=== PATIENT | female | born 1945 | race Caucasian/White ===

== ENCOUNTER 2016-11-08 09:46 | Day surgery (SDC) | payer MEDICARE, OTHER ==
[~2016-11-08 09:46] MED LIST: RINGER'S SOLUTION,LACTATED 1,000 ML IV PRN
[2016-11-08] MEDS ORDERED: RINGER'S SOLUTION,LACTATED 1,000 ML IV ONE (10:15)
[2016-11-08 12:16] VITALS: BP 130/65
--- NOTE | 2016-11-09 12:28 | OR ---
Operative Report - Dictated Report Narrative: OPERATIVE REPORT DATE OF OPERATION: 11/08/2016 PREOPERATIVE DIAGNOSIS: History of colon polyp POSTOPERATIVE DIAGNOSIS: 4 mm polyp near the hepatic flexure (pathology pending) OPERATION: Colonoscopy with hot biopsy forceps polypectomy at the hepatic flexure SURGEON: Letty Siddiqui MD ANESTHESIA: KINGSLEY Olvera CRNA INDICATIONS FOR PROCEDURE: The patient is a 71-year-old female referred by Dr. Isaac. 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 She has some long-standing crampy abdominal pain relieved by stooling. There is no family history of colon cancer FINDINGS: 4 mm area of polypoid change near the hepatic flexure otherwise normal colonoscopy to the cecum NARRATIVE OF PROCEDURE: The patient was identified in the holding area, and prior to the administration of anesthetic, a multidisciplinary timeout was observed. With the patient in the left lateral position and after the administration of intravenous sedation, the perineum was inspected. There was no evidence of pilonidal disease or skin breakdown. The external appearance of the anus was normal. Sphincter tone was good. The flexible fiberoptic colonoscope was inserted into the rectum which was insufflated with air. The rectal mucosa and submucosal vascular pattern appeared normal, the prep was seen to be complete. The scope was advanced through the sigmoid colon, up the descending colon, and around the splenic flexure where the triangular haustral architecture of the transverse colon was seen. The scope was advanced across the transverse colon, to the hepatic flexure. At this level a 4 mm area of polypoid change was identified. This was biopsied and then thoroughly destroyed with electrocautery. The site was seen to be complete and hemostatic. The scope was advanced around the hepatic flexure to the cecum, where the confluence of tenia and the ileocecal valve were identified. The mucosa at this level appeared normal. The scope was then slowly withdrawn in a circular fashion so that all aspects of colonic mucosa were inspected. The colon was somewhat capacious and character however relatively normal in course. The haustral architecture appeared well preserved throughout with no evidence of external compression. The mucosa and submucosal vascular pattern appeared normal, specifically there was no gross evidence to suggest colitis or inflammatory bowel disease and no AV malformations were seen. No pb diverticular openings were demonstrated. The scope was gradually withdrawn to the level of the rectum. As much insufflated air as possible was removed. The scope was withdrawn from the patient and the procedure terminated. The patient tolerated the anesthetic and procedure well without complication and was transferred back to the ambulatory surgery area awake and in stable condition. The patient remained stable throughout a period of postoperative observation. She denied abdominal discomfort, was able to tolerate by mouth intake, and was up without assistance. I shared the operative findings with the patient and she was given copies of the photographs which appear in the medical record. She was discharged home with instructions not to engage in hazardous activity today , but may resume normal activity tomorrow, and advance diet as tolerated. She is to continue those medications as listed in the history and physical exam. I made arrangements to contact her with the biopsy reports and will make additional recommendations for treatment and follow-up based upon those results. Reviewed and electronically signed
== END 2016-11-08 09:47 | disposition home or self-care (01) ==
LOC: AMB 09:46
PROVIDERS: ATTEND Surgery
PROC: 0DBE8ZX Excision of Large Intestine, Via Natural or Artificial Opening Endoscopic, Diagnostic (ICD-10-PCS; principal; 2016-11-08 10:15)
DX: Z12.11 Encounter for screening for malignant neoplasm of colon (principal); K63.5 Polyp of colon; E11.9 Type 2 diabetes mellitus without complications; I10 Essential (primary) hypertension; I25.10 Atherosclerotic heart disease of native coronary artery without angina pectoris; J44.9 Chronic obstructive pulmonary disease, unspecified; M81.0 Age-related osteoporosis without current pathological fracture; E66.9 Obesity, unspecified; Z68.41 Body mass index [BMI] 40.0-44.9, adult; Z86.010 Personal history of colon polyps; Z87.891 Personal history of nicotine dependence

== ENCOUNTER 2016-12-13 07:44 | Inpatient (IN) | payer MEDICARE, OTHER ==
[~2016-12-13 07:44] MED LIST changes: +MORPHINE SULFATE 15 MG TABLET.SA PO PRN; +ROPIVACAINE HCL/PF 100 MG, KETOROLAC TROMETHAMINE 30 MG, EPINEPHrine 0.2 MG in NORMAL S... IJ PRN; +TRANEXAMIC ACID 1,000 MG in NORMAL SALINE 100 ML IV PRN; +ceFAZolin SODIUM 1 GM VIAL IV PRN
--- NOTE | 2016-12-13 09:43 | PREOP NOTE ---
Preoperative Progress Note - Preoperative Changes Changes to Preop Condition?: No Changes
[2016-12-13] MEDS ORDERED: RINGER'S SOLUTION,LACTATED 800 ML IV ONE (10:15)
[2016-12-13] MEDS ORDERED: RINGER'S SOLUTION,LACTATED 1,000 ML IV ONE ×2 (11:05→12:20)
[2016-12-13] MEDS ORDERED: diphenhydrAMINE HCL 50 MG/ML VIAL IV PRN (12:08)
[2016-12-13] MEDS ORDERED: ACETAMINOPHEN 500 MG TABLET PO PRN (12:08)
[2016-12-13] MEDS ORDERED: ZOLPIDEM TARTRATE 5 MG TABLET PO PRN (12:08)
[2016-12-13] MEDS ORDERED: PROMETHAZINE HCL 5 MG in DEXTROSE 5 % IN WATER 50 ML IV PRN ×2 (12:08)
[2016-12-13] MEDS ORDERED: MAGNESIUM HYDROXIDE 30 ML UDC PO PRN (12:08)
[2016-12-13] MEDS ORDERED: MAG HYDROX/ALUMINUM HYD/SIMETH 30 ML UDC PO PRN (12:08)
[2016-12-13] MEDS ORDERED: NITROGLYCERIN 0.4 MG/TAB BTL SL PRN (12:10)
--- NOTE | 2016-12-13 12:18 | OR ---
Operative Report - Dictated Report Narrative: Date: 12/13/2016 Preoperative diagnosis: Left Knee degenerative joint disease. Postoperative diagnosis: Left Knee degenerative joint disease. Procedure: Left Total knee arthroplasty. Surgeon: Rick Frances M.D. Supervisor Detasseling Crew: Alok Mullen PA-C Anesthesia: Spinal with regional block and local periarticular joint injection. Complications: None Specimens: Bone for disposal. Estimated blood loss: Minimal. Tourniquet time: 73 Minutes at 350 millimeters of mercury. Retained implants: Depuy Attune size 5 narrow left lugged cemented posterior stabilized femoral component. Size 4 fixed-bearing cemented tibial platform. 5 by 8 millimeter posterior stabilized cross-linked tibial insert. 32 millimeter medialized patella button. Indications: Mrs. Bustamante is a 71-year-old female who has had long-standing left knee pain and arthrosis. This patient was followed in my clinic for period of time with significant complaints of left knee pain consistent with arthritic changes. She had failed conservative measures including, but not limited to, activity modification, passage of time, medications, and other conservative measures. Patient wished to proceed with surgical treatment. The risks, benefits, and alternatives were discussed in clinic. The risks of , blood clots, bleeding, infection, nerve/tendon blood vessel/ injury, malposition of components, intraoperative fracture, postoperative limited range of motion, persistent pain, failure of components, and need for additional procedures. Patient wished to proceed consent was obtained after answering all questions. Procedure: After marking the correct extremity on the floor, the patient was taken to the operating room. A timeout was performed. IV antibiotics consisting of Ancef were administered prior to the procedure. A regional followed by spinal anesthetic was induced by anesthesia, per my request, on the operative table with all bony prominences well-padded. Lei catheter was placed, and a bump was placed under the operative side buttock. SCDs and JULIETA hose were utilized on the nonoperative leg. A well-padded tourniquet was applied to the operative thigh. The operative leg was then pre-scrubbed with alcohol prepped, and draped in a standard sterile fashion. After exsanguinating the extremity with an Esmarch bandage, the tourniquet was inflated. After marking out the anterior knee for standard incision centered over the patella, the skin was incised and dissected down to the joint retinaculum. The joint retinaculum was marked out as well as the horizontal axis of the patella, and a standard medial parapatellar arthrotomy was then made. The most proximal aspect of the quadriceps tendon and the patella tendon insertion were protected from release. A partial synovectomy was performed as well as a resection of the infrapatellar fat pad. The distal femoral fat pad proximal to the trochlea was also resected using cautery. The soft tissues were elevated off the medial aspect of the proximal tibia using a Chun elevator ensuring that we did not transect the medial collateral ligament. Upon initial evaluation range of motion was approximately 0 degrees to 120 degrees of flexion. There were signs of advanced arthrosis in the medial and patellofemoral joint spaces. There were large marginal osteophytes which were removed with a rongeur. The knee was hyperflexed and the patella was tucked laterally. Protecting the surrounding soft tissues with Homans, an entry drill was placed down the femoral canal using Whitesides line for guidance into the entry point. The intramedullary femoral alignment angélica was utilized in order to cut the distal femur in 5 degrees of valgus resecting 10 millimeters of bone. Next the distal femur was sized to a size 5. A posterior referencing guide was utilized to place the distal femoral cutting block in 3 degrees of external rotation. This was pinned into place. The rotation was confirmed both visually and based on anatomic landmarks. The 4 in 1 cutting jig of the appropriate size was utilized in order to make all bony cuts. The angle wing was used to ensure no notching. Retractors were utilized in order to protect surrounding soft tissues. This cut did not result in any excessive notching. We then cut the box centered over the distal femur. This allowed for resection of the anterior and posterior cruciate ligaments. I then turned my attention to the preparation of the tibia. Using an extra medullary tibial alignment angélica, 3 millimeters of bone was resected off the medial articular surface. This was made perpendicular to the mechanical axis of the joint with the alignment angélica centered over the ankle mortise. The alignment angélica was checked and was noted to be parallel to the mechanical axis, centered over the medial one third of the tibial tubercle, paralleling the anterior surface of the tibia. We then turned our attention to the remaining meniscus and soft tissues. These were removed while protecting the surrounding ligaments and soft tissues. The marginal osteophytes off the anterior, posterior, medial, lateral aspects of the femur and tibia were removed. The tibia was sized out to a size 4. Next the tibia was drilled and punched in an externally rotated position. Next the trial femur and a series of tibial inserts were utilized in order to allow for full extension and maximal flexion. It was found that a 8 millimeter insert gave the best range of motion and stability at multiple flexion points as well as at full extension there was less than 2 mm of gapping both medially and laterally. There is minimal anterior translation with the knee at 90 degrees of flexion and no signs of being able to dislocate the knee. The patella was then prepared. The initial thickness was 21 millimeters. This was reamed down to 12 millimeters parallel to the anterior surface of the patella. It was sized out to a size 32 medialized patella button. This was then drilled and trialed. Without any medial restraint the patella tracked appropriately and did not sublux or dislocate. At this point, it was felt these were the appropriate sized implants, and all trials were removed. The standard periarticular joint injection consisting of ropivacaine, Toradol, and epinephrine were injected into the periarticular joint tissues. The bony surfaces were thoroughly irrigated with a pulsatile- suction saline irrigation device. A bone plug from the prior resected anterior chamfer cut was placed into the drill hole at the distal femur. The bony surfaces were then dried in preparation for placement of the implants. The cement was vacuum mixed per the german teacher's instructions. The cement was placed on the dry bony surfaces and posterior aspect of the implants. The implants were impacted into place, removing all extruded cement. At this point anesthesia administered tranexamic acid per protocol intravenously. The knee was placed in extension with axial loading with the trial insert while the cement cured. Once the cement cured, all remaining extruded cement was removed. The knee was placed through a range of motion with the trial insert to ensure appropriate range of motion and stability. Final range of motion was approximately 0 to 120 degrees. The knee was again thoroughly irrigated with pulsatile saline lavage. The final polyethylene insert was then impacted into place ensuring no retained soft tissues. The remaining periarticular joint injection was injected. A medium Hemovac drain was placed exiting superior laterally. The knee was then placed over a triangle and the arthrotomy was closed with interrupted #1 Vicryl after thoroughly irrigating the joint. The deep and subcutaneous tissues were closed with interrupted 0 and 3-0 Vicryl respectively. Skin was closed with a running subcutaneous 3-0 Monocryl and Prineo Dermabond dressing. 4 x 4's, Sof-Rol, and a full leg Natanael wrap were applied. All sponge, needle, blade, and instrument counts were correct prior to closing the wounds. Postoperative condition: The patient was awoken and transferred to the postanesthesia care unit in stable condition. Plan is to be admitted to the inpatient medical/surgical floor postoperatively for 24 hours of IV antibiotics , physical therapy, occupational therapy, and medical comanagement. Patient will be weightbearing as tolerated with range of motion as tolerated. DVT prophylaxis will be with SCDs, JULIETA hose, and pharmacological anticoagulation. Anticipated hospital stay is approximately 2-4 days.
--- NOTE | 2016-12-13 12:25 | OR ---
Anesthesia Procedure Note - Anesthesia Procedure Note Date of Service: 12/13/16 Narrative: Vital Signs - Last Taken Temp 36.5 C 12/13/16 10:07 Pulse 91 12/13/16 10:07 Resp 18 12/13/16 10:07 BP 145/75 12/13/16 10:07 Pulse Ox 95 12/13/16 10:07 O2 Oxygen Delivery Method Room Air 12/13/16 12:23 ANESTHESIA PROCEDURE NOTE Date of Procedure: 12/13/2016. Time of procedure: 1015. Performed by: Mirza Olvera CRNA Building Equipment Operator: None. Preprocedure diagnosis: Left total knee arthroplasty. Post procedure diagnosis: Same. Procedure: Left ultrasound guided femoral block for postoperative analgesia. Indications: The patient is a 71 -year-old female status post left total knee arthroplasty and consultation for left ultrasound-guided femoral nerve block. Findings: See below. Details of the procedure: The tissue over the intended target site was cleansed with ChloraPrep. 1 ml Lidocaine 1 % was infiltrated to the skin and subcutaneous tissue. Under sterile technique and ultrasound guidance a 21-gauge block needle was inserted anterior to the left femoral nerve . 30 mL's of 0.5% bupivacaine plus epinephrine 1 200,000 was injected after negative aspiration for blood. Spread of local anesthetic surrounding the femoral nerve was observed throughout the injection with ultrasound. The needle was removed intact. No complications were noted. The images were retained in the Hospital medical database . EBL: Minimal. Fluids: N/A. Specimen: N/A. Post procedure condition: The patient tolerated the procedure well. No complications were noted. Thank you for this consultation. Mirza Olvera CRNA
[2016-12-13] MEDS ORDERED: ALBUTEROL SULFATE 2.5 MG/0.5 ML VIAL.NEB IH PRN (12:30)
[2016-12-13] MEDS: DICLOFENAC SODIUM 100 APPL TUBE TP SCH ×2 (14:10→16:21)
[2016-12-13] MEDS: KETOROLAC TROMETHAMINE 15 MG/ML VIAL IV SCH ×2 (14:11→19:02)
[2016-12-13] MEDS: ceFAZolin SODIUM 1 GM in DEXTROSE 5 % IN WATER 100 ML IV SCH ×4 (14:14→20:12)
[2016-12-13] MEDS: RINGER'S SOLUTION,LACTATED 1,000 ML IV PRN ×2 (14:20→21:30)
[2016-12-13] MEDS ORDERED: DICLOFENAC SODIUM 100 APPL TUBE TP PRN (16:23)
--- NOTE | 2016-12-13 16:25 | PN ---
Subjective - Date and Time Seen Date: 12/13/16 Time: 16:25 Subjective Narrative: doing well. no significant pain. laying in bed, using CPM. no cp, no dyspnea. no n/v. Objective Objective Narrative: history of cardiac stent to LAD in 06/2013. last echo - 03/2015 ef 60-65% mild LVH diastolic dysfunction - Review of Systems Generalized/Overall Review: Reports: No Symptoms Reported EENTM: Reports: No Symptoms Reported Respiratory: Reports: No Symptoms Reported Cardiac: Reports: No Symptoms Reported Abdominal: Reports: No Symptoms Reported Genitourinary Symptoms: Reports: No Symptoms Reported Musculoskeletal Complaints: Reports: Joint Pain, Joint Swelling Neurological: Reports: No Symptoms Reported Skin: Reports: No Symptoms Reported Endocrine: Reports: No Symptoms Reported Misc: All systems neg except as marked - Vitals Vitals: Last Vital Signs Temp 36.8 C 12/13/16 13:48 Pulse 87 12/13/16 13:48 Resp 16 12/13/16 13:48 BP 126/71 12/13/16 13:48 Pulse Ox 93 12/13/16 13:48 - Exam Constitutional: Present: Alert, Cooperative, No distress, Elderly Neck: Present: supple Breasts: Present: Exam deferred Respiratory: Present: lungs clear, normal breath sounds Cardiovascular/Chest: Present: normal peripheral pulses, regular rate, rhythm Abdomen: Present: soft, nontender, nondistended /Rectal: Present: Exam deferred Extremity: Present: normal inspection - right, no calf tenderness, leg pain - left Skin Exam: Present: normal color, warm/dry, no cyanosis Cauti Physician Documentation - Urinary Catheter Management 2-way Urethral Urethral Indwelling: Yes Reason for Continuing Indwelling Catheter: Surgical Procedure Date of Insertion: 12/13/16 Time of Insertion: 10:45 Assessment/Plan Plan Narrative: 71 year old female s/p left TKA. care per orthopaedics team - appreciate their help. Given CAD history with stent - monitor on tele for 24-48 hours. If no events, will d/c telemetry. Continue aspirin when okay with ortho. anticoagulation / VTE per ortho. patient has a history of diastolic dysfunction - watch I&Os closely as she will tend to fluid overload quickly. daily weight / strict I&Os. will follow closely. - Problems/Diagnosis (1) Status post total left knee replacement Problem: Acute (2) CAD (coronary artery disease) Problem: Acute (3) COPD (chronic obstructive pulmonary disease) Problem: Acute (4) Diabetes Problem: Acute (5) HTN (hypertension) Problem: Acute (6) Obesity Problem: Acute (7) Osteoarthritis Problem: Acute (8) Diastolic dysfunction Problem: Acute
[2016-12-13] MEDS ORDERED: rOPINIRole HCL 1 MG TABLET ONE (19:01)
[2016-12-13] MEDS: FLUTICASONE/SALMETEROL 14 PUFF DISK.W.DEV IH SCH (20:13)
[2016-12-13] MEDS: SENNOSIDES/DOCUSATE SODIUM 1 TAB TABLET PO SCH (20:15)
[2016-12-13] MEDS: MORPHINE SULFATE 15 MG TABLET.SA PO SCH (20:16)
[2016-12-13] MEDS: SIMVASTATIN 10 MG TABLET PO SCH (20:16)
[2016-12-13] MEDS: amLODIPine BESYLATE 5 MG TABLET PO SCH (20:17)
[2016-12-13] MEDS ORDERED: rOPINIRole HCL 0.5 MG TABLET PO PRN (21:00)
[2016-12-14] MEDS: KETOROLAC TROMETHAMINE 15 MG/ML VIAL IV SCH ×5 (00:23→23:18)
[2016-12-14] MEDS: oxyCODONE HCL/ACETAMINOPHEN 1 TAB TABLET PO PRN ×2 (00:27→04:31)
[2016-12-14] MEDS: ceFAZolin SODIUM 1 GM in DEXTROSE 5 % IN WATER 100 ML IV SCH ×2 (02:37)
[2016-12-14] MEDS: ONDANSETRON HCL/PF 2 MG/ML VIAL IV PRN ×2 (05:21→14:17)
[2016-12-14 06:14] LABS: Hematocrit 34.2 % (37.0-47.0); Hemoglobin 11.2 gm/dL (12.5-16.0); Mean Cell Volume 87.5 fl (78-100); Mean Corpuscular Hemoglobin 28.6 pg (27-31); Mean Corpuscular Hgb Conc 32.7 g/dl (32-36); Mean Platelet Volume 11.3 fl (6.0-9.5); Platelet Count 244 K/mm3 (150-450); Red Blood Count 3.91 M/mm3 (4.2-5.4); Red Cell Distribution Width 13.8 % (11.5-14.0); White Blood Count 7.3 K/mm3 (4.0-10.5)
[2016-12-14 06:25] LABS: Anion Gap 12.2 mmol/L (6.8-13.8); BUN/Creatinine Ratio 22.1 (9.0-21.6); Calcium * 8.1 mg/dL (7.9-10.9); Carbon Dioxide 28.8 mmol/L (24-32.6); Estimated Creat Clear 47.6
[2016-12-14] MEDS ORDERED: ONDANSETRON HCL/PF 2 MG/ML VIAL IV PRN (06:39)
[2016-12-14] MEDS ORDERED: ONDANSETRON HCL/PF 2 MG/ML VIAL IV ONE (06:47)
--- NOTE | 2016-12-14 08:00 | PN ---
Subjective - Date and Time Seen Date: 12/14/16 Time: 07:55 Subjective Narrative: Subjective: Reports notable nausea last night. She does not feel it's significantly related to her pain meds but cannot completely recall she was nauseated with just about any food or liquids last night. She states her pain is doing okay at this time but cannot recall she's been able to keep down me if her pain medicines. Voiding without any complications. Denies calf pain. Physical exam: Alert and oriented to person, place and time Abdomen soft Left lower Extremity: Palpable dorsalis pedis pulse. Sensation grossly intact to light touch. Dressings clean and dry. Able to flex and extend ankle and toes. No excessive drainage. Calf and thigh are soft and nontender. Assessment: Postop day 1 status post left total knee arthroplasty. Plan: Continue with physical and occupational therapy weightbearing as tolerated. Continue with anticoagulation. 24 hours postoperative prophylactic antibiotics. Pain control with goal to rely on oral medications- we will hold her MS Contin and switch her Percocet to [place] in an attempt to decrease her nausea. Continue bowel regimen. Will need 6 weeks with walker or assitive device to protect joint while ambulating during the recovery process. Discharge planning - she is planning on going to a nursing facility and thus will need 3 midnight prior to transfer. Goal is to transfer on . Discontinue drain and Lei catheter. Repeat labs in a.m. Objective - Vitals Vitals: Last Vital Signs Temp 36.8 C 12/14/16 07:40 Pulse 94 12/14/16 07:40 Resp 20 12/14/16 07:40 BP 154/50 12/14/16 07:40 Pulse Ox 92 12/14/16 07:40 - Abnormal Lab Findings Abnormal Lab Findings: Abnormal Lab Results 12/14/16 12/14/16 Range/Units 05:15 05:15 RBC 3.91 L (4.2-5.4) M/mm3 Hgb 11.2 L (12.5-16.0) gm/dL Hct 34.2 L (37.0-47.0) % MPV 11.3 H (6.0-9.5) fl BUN/Creatinine Ratio 22.1 H (9.0-21.6) Random Glucose 162 H (70-110) mg/dL Cauti Physician Documentation - Urinary Catheter Management 2-way Urethral Urethral Indwelling: Yes Date of Insertion: 12/13/16 Time of Insertion: 10:45 Assessment/Plan - Problems/Diagnosis (1) Acute blood loss anemia Problem: Acute (2) Nausea & vomiting Problem: Acute (3) CAD (coronary artery disease) Problem: Chronic (4) COPD (chronic obstructive pulmonary disease) Problem: Chronic (5) Diabetes Problem: Chronic Qualifiers: Diabetes mellitus type: type 2 (6) Diastolic dysfunction Problem: Chronic (7) HTN (hypertension) Problem: Chronic (8) Obesity Problem: Chronic Qualifiers: Obesity type: due to excess calories Obesity classification: adult class 2 (BMI 35 ? 39.9) Body mass index: BMI 39.0-39.9 (9) Status post total left knee replacement Problem: Acute
[2016-12-14] MEDS: HYDROcodone/ACETAMINOPHEN 1 EACH TABLET PO PRN ×4 (08:54→23:06)
[2016-12-14] MEDS: MULTIVITAMINS 1 CAP CAPSULE PO SCH (08:55)
[2016-12-14] MEDS: FLUTICASONE/SALMETEROL 14 PUFF DISK.W.DEV IH SCH ×2 (08:55→21:04)
[2016-12-14] MEDS: CHOLECALCIFEROL 5,000 UNIT TABLET PO SCH (08:55)
[2016-12-14] MEDS: CALCIUM CARBONATE 500 MG TAB.CHEW PO SCH (08:56)
[2016-12-14] MEDS ORDERED: amLODIPine BESYLATE 5 MG TABLET PO SCH (09:00)
[2016-12-14] MEDS: LOSARTAN POTASSIUM 50 MG TABLET PO SCH (09:28)
[2016-12-14] MEDS: HYDROmorphone HCL 1 MG/ML DISP.SYRIN IV PRN ×2 (10:06→13:07)
[2016-12-14] MEDS: ENOXAPARIN SODIUM 40 MG/0.4 ML SYRG SC SCH (10:25)
--- NOTE | 2016-12-14 13:56 | PN ---
Subjective - Date and Time Seen Date: 12/14/16 Time: 13:41 Subjective Narrative: had nausea / vomiting in the night . MS contin and percocet d/[place], on hydrocodone with improvement in s/s. pain under control. Objective - Review of Systems Respiratory: Denies: Cough, Shortness of Breath, Orthopnea Cardiac: Denies: Chest Pain, Edema, Palpitations Abdominal: Reports: Nausea, Vomiting - Vitals Vitals: Vital Signs Temp 36.8 C 12/14/16 07:40 Pulse 97 12/14/16 10:56 Resp 20 12/14/16 07:40 BP 102/54 12/14/16 10:38 Pulse Ox 92 12/14/16 07:40 - Abnormal Lab Findings Abnormal Lab Findings: Laboratory Tests 12/14/16 05:15 WBC 7.3 Hgb 11.2 L Hct 34.2 L Plt Count 244 12/14/16 05:15 Plasma Sodium 141 Potassium 4.0 Chloride 103 Carbon Dioxide 28.8 Anion Gap 12.2 BUN 15 Creatinine 0.68 Est GFR (Non-Af Amer) 90 Random Glucose 162 H Calcium 8.1 - Exam Constitutional: Present: Elderly - severely obese, alert and oriented x 3. Neck: Present: normal inspection, trachea midline Respiratory: Present: normal breath sounds, no respiratory distress. Absent: no accessory muscle use Cardiovascular/Chest: Present: regular rate, rhythm Abdomen: Present: Normal bowel sounds, soft, nontender, obese Extremity: Present: other - able to move all toes; sensation intact. Eye contact: Present: cooperative, good eye contact, normal speech Cauti Physician Documentation - Urinary Catheter Management 2-way Urethral Urethral Indwelling: No Date of Insertion: 12/13/16 Time of Insertion: 10:45 Date of Removal: 12/14/16 Time of Removal: 10:00 Assessment/Plan Plan Narrative: 1. LT. total knee arthroplasty: POD #1. MS Contin and Percocet DC'd due to nausea/vomiting. Patient currently on Vicodin for pain. 2. Acute blood loss anemia: Due to surgery. Hemodynamically stable. 3. Hypertension: Losartan on hold today due to low blood pressure. 4. Nausea and vomiting: on phenergan IV 5. chronic medical conditions: Osteoporosis, RLS, COPD, reviewed and stable.
[2016-12-14] MEDS: amLODIPine BESYLATE 5 MG TABLET PO SCH (21:05)
[2016-12-14] MEDS: SENNOSIDES/DOCUSATE SODIUM 1 TAB TABLET PO SCH (21:05)
[2016-12-14] MEDS: SIMVASTATIN 10 MG TABLET PO SCH (21:06)
[2016-12-15] MEDS: HYDROcodone/ACETAMINOPHEN 1 EACH TABLET PO PRN ×8 (02:42→23:14)
[2016-12-15] MEDS: KETOROLAC TROMETHAMINE 15 MG/ML VIAL IV SCH (05:19)
[2016-12-15 06:10] LABS: Hematocrit 28.8 % (37.0-47.0); Hemoglobin 9.4 gm/dL (12.5-16.0); Mean Cell Volume 87.8 fl (78-100); Mean Corpuscular Hemoglobin 28.7 pg (27-31); Mean Corpuscular Hgb Conc 32.6 g/dl (32-36); Mean Platelet Volume 10.8 fl (6.0-9.5); Platelet Count 201 K/mm3 (150-450); Red Blood Count 3.28 M/mm3 (4.2-5.4); Red Cell Distribution Width 13.9 % (11.5-14.0); White Blood Count 19.4 K/mm3 (4.0-10.5)
[2016-12-15 06:25] LABS: Anion Gap 14.6 mmol/L (6.8-13.8); BUN/Creatinine Ratio 22.2 (9.0-21.6); Calcium * 7.6 mg/dL (7.9-10.9); Estimated Creat Clear 39.9; Potassium 3.6 mmol/L (3.4-4.6)
[2016-12-15] MEDS: FLUTICASONE/SALMETEROL 14 PUFF DISK.W.DEV IH SCH ×2 (08:06→20:58)
[2016-12-15] MEDS: CHOLECALCIFEROL 5,000 UNIT TABLET PO SCH (08:07)
[2016-12-15] MEDS: MULTIVITAMINS 1 CAP CAPSULE PO SCH (08:07)
[2016-12-15] MEDS: LOSARTAN POTASSIUM 50 MG TABLET PO SCH (08:08)
[2016-12-15] MEDS: CALCIUM CARBONATE 500 MG TAB.CHEW PO SCH (08:09)
[2016-12-15] MEDS: MORPHINE SULFATE 15 MG TABLET.SA PO SCH ×2 (08:10→20:54)
--- NOTE | 2016-12-15 09:19 | PN ---
Subjective - Date and Time Seen Date: 12/15/16 Time: : Subjective Narrative: Subjective: Reports resolved nausea after changing pain medicines. Her pain is improved. Denies any pain with urination, fever or chills, or cough. Voiding without any complications. Denies calf pain. Was able to walk in the [place] with therapy today Physical exam: Alert and oriented to person, place and time Left lower Extremity: Palpable dorsalis pedis pulse. Sensation grossly intact to light touch. Dressings clean and dry. Able to flex and extend ankle and toes. No excessive drainage. Calf and thigh are soft and nontender. Assessment: Postop day 2 status post left total knee arthroplasty. Plan: Continue with physical and occupational therapy weightbearing as tolerated. Continue with anticoagulation. Pain control with goal to rely on oral medications- we will hold her MS Contin and switch her Percocet to [place] in an attempt to decrease her nausea. Continue bowel regimen. Will need 6 weeks with walker or assitive device to protect joint while ambulating during the recovery process. Discharge planning - she is planning on going to a nursing facility on . She has an elevated white count today but no apparent signs of infection. We will repeat hemogram in the morning and continue to monitor. This is likely reactive postoperative. Repeat labs in a.m. Objective - Vitals Vitals: Last Vital Signs Temp 36.6 C 12/15/16 07:34 Pulse 92 12/15/16 08:08 Resp 18 12/15/16 07:34 BP 132/50 12/15/16 08:08 Pulse Ox 94 12/15/16 07:34 - Abnormal Lab Findings Abnormal Lab Findings: Abnormal Lab Results 12/15/16 12/15/16 Range/Units 06:00 06:00 WBC 19.4 H D (4.0-10.5) K/mm3 RBC 3.28 L (4.2-5.4) M/mm3 Hgb 9.4 L (12.5-16.0) gm/dL Hct 28.8 L (37.0-47.0) % MPV 10.8 H (6.0-9.5) fl Anion Gap 14.6 H (6.8-13.8) mmol/L BUN/Creatinine Ratio 22.2 H (9.0-21.6) Random Glucose 176 H (70-110) mg/dL Calcium 7.6 L (7.9-10.9) mg/dL Cauti Physician Documentation - Urinary Catheter Management 2-way Urethral Urethral Indwelling: No Date of Insertion: 12/13/16 Time of Insertion: 10:45 Date of Removal: 12/14/16 Time of Removal: 10:00 Assessment/Plan - Problems/Diagnosis (1) Acute blood loss anemia Problem: Acute (2) Nausea & vomiting Problem: Acute (3) CAD (coronary artery disease) Problem: Chronic (4) COPD (chronic obstructive pulmonary disease) Problem: Chronic (5) Diabetes Problem: Chronic Qualifiers: Diabetes mellitus type: type 2 (6) Diastolic dysfunction Problem: Chronic (7) HTN (hypertension) Problem: Chronic (8) Obesity Problem: Chronic Qualifiers: Obesity type: due to excess calories Obesity classification: adult class 2 (BMI 35 ? 39.9) Body mass index: BMI 39.0-39.9 (9) Status post total left knee replacement Problem: Acute
[2016-12-15] MEDS: HYDROmorphone HCL 1 MG/ML DISP.SYRIN IV PRN ×4 (09:56→22:09)
--- NOTE | 2016-12-15 10:03 | PN ---
Subjective - Date and Time Seen Date: 12/15/16 Time: 10:02 Subjective Narrative: POD#2 Patient has not thrown up since yesterday. On hydrocodone/acetaminophen with improvement in s/s. Pain under control. No nausea or vomiting. Objective - Review of Systems Generalized/Overall Review: Denies: Chills, Fever Respiratory: Denies: Cough, Shortness of Breath Cardiac: Denies: Chest Pain, Edema, Palpitations Abdominal: Reports: Constipation. Denies: Nausea, Vomiting Genitourinary Symptoms: Denies: Urgency, Frequency, Dysuria - Vitals Vitals: Last Vital Signs Temp 36.6 C 12/15/16 07:34 Pulse 92 12/15/16 08:08 Resp 18 12/15/16 07:34 BP 132/50 12/15/16 08:08 Pulse Ox 94 12/15/16 07:34 - Abnormal Lab Findings Abnormal Lab Findings: Laboratory Tests 12/15/16 06:00 WBC 19.4 H D Hgb 9.4 L Hct 28.8 L Plt Count 201 12/15/16 06:00 Plasma Sodium 141 Potassium 3.6 Chloride 101 Carbon Dioxide 28.0 BUN 18 Creatinine 0.81 Est GFR (Non-Af Amer) 74 Random Glucose 176 H Calcium 7.6 L - Exam Constitutional: Present: Alert, Oriented x3, Elderly - severly obese Neck: Present: normal inspection, trachea midline Respiratory: Present: normal breath sounds, no accessory muscle use. Absent: rhonchi Cardiovascular/Chest: Present: regular rate, rhythm. Absent: tachycardia Abdomen: Present: Normal bowel sounds, soft, nontender, obese Extremity: Present: no calf tenderness, other - sensation is intact, able to move all toes Eye contact: Present: cooperative, good eye contact, normal speech Cauti Physician Documentation - Urinary Catheter Management 2-way Urethral Urethral Indwelling: No Date of Insertion: 12/13/16 Time of Insertion: 10:45 Date of Removal: 12/14/16 Time of Removal: 10:00 Assessment/Plan Plan Narrative: 1. LT. total knee arthroplasty: POD #2. Patient currently on Vicodin for pain, which she is tolerating well. MS Contin and Percocet DC'd 12/14 due to nausea/vomiting. 2. Leukocytosis: Most likely reactive in nature. Will be repeated in am. Patient does not have increased temperature, cough, shortness of breath, dysuria, frequency, abdominal pain. 3. Acute blood loss anemia: Due to surgery. Hemodynamically stable. 4. Hypertension: Stable. 5. Nausea and vomiting: Improved. On phenergan IV as needed. 6. chronic medical conditions: Osteoporosis, RLS, COPD, reviewed and stable. 7. DVT prophylaxis: enoxaparin 40 mg subQ daily Full code
[2016-12-15] MEDS: ENOXAPARIN SODIUM 40 MG/0.4 ML SYRG SC SCH (10:37)
[2016-12-15] MEDS: SENNOSIDES/DOCUSATE SODIUM 1 TAB TABLET PO SCH (20:59)
[2016-12-15] MEDS: amLODIPine BESYLATE 5 MG TABLET PO SCH (21:00)
[2016-12-15] MEDS: SIMVASTATIN 10 MG TABLET PO SCH (21:01)
[2016-12-16] MEDS: HYDROmorphone HCL 1 MG/ML DISP.SYRIN IV PRN ×2 (04:31→06:58)
[2016-12-16 06:10] LABS: Hematocrit 31.2 % (37.0-47.0); Hemoglobin 10.1 gm/dL (12.5-16.0); Mean Cell Volume 88.1 fl (78-100); Mean Corpuscular Hemoglobin 28.5 pg (27-31); Mean Corpuscular Hgb Conc 32.4 g/dl (32-36); Mean Platelet Volume 11.6 fl (6.0-9.5); Platelet Count 238 K/mm3 (150-450); Red Blood Count 3.54 M/mm3 (4.2-5.4); White Blood Count 13.5 K/mm3 (4.0-10.5)
[2016-12-16] MEDS: HYDROcodone/ACETAMINOPHEN 1 EACH TABLET PO PRN ×2 (06:51→09:01)
[2016-12-16 07:54] VITALS: BP 109/58
--- NOTE | 2016-12-16 08:19 | DS ---
(1) Acute blood loss anemia Problem: Acute (2) Osteoarthritis Problem: Acute (3) Status post total left knee replacement Problem: Acute (4) CAD (coronary artery disease) Problem: Chronic (5) COPD (chronic obstructive pulmonary disease) Problem: Chronic (6) Diabetes Problem: Chronic Qualifiers: Diabetes mellitus type: type 2 (7) Diastolic dysfunction Problem: Chronic (8) HTN (hypertension) Problem: Chronic (9) Obesity Problem: Chronic Qualifiers: Obesity type: due to excess calories Obesity classification: adult class 2 (BMI 35 ? 39.9) Body mass index: BMI 39.0-39.9 Description of Stay: Mrs. Porfirio montenegro was admitted to the floor after undergoing left total knee arthroplasty. Tolerated this well. Was admitted to the floor postoperatively for 24 hours of IV antibiotics, pain control, medical comanagement, and occupational and physical therapy. OT and PT were consulted to assist with activities of daily living and ambulation. Was made weightbearing as tolerated with range of motion as tolerated. Pain was initially controlled with IV regimen. This was transitioned to oral once tolerating a by mouth intake. Was resumed on home diet and medications. Had a Lei catheter inserted and the operating room which was discontinued on postoperative day 1. A drain was placed intraoperatively into the knee which was discontinued on postoperative day 1. Lovenox SCD and JULIETA hose were utilized for DVT prophylaxis. Vital signs remained stable to the hospital course. Serial labs were obtained which showed a final hemoglobin of [10.1] grams. She did have an elevated white count of 19,500 on postop day 2 was felt to be reactive. Postop day 3 her white count improved 13,500. BMP was reviewed and was stable. Physical examination throughout the hospital course showed an extremity that had sensation that was intact to light touch, palpable pulses, a benign wound, motor intact to the toes, ankle, and knee. Knee range of motion was approximately [5] degrees to [70] degrees. Once an oral pain regimen was tolerated and physical therapy goals were met, it was felt that they were stable for discharge to [facility] facility. Instructions: Continue with weightbearing as tolerated and range of motion as tolerated. It is OK to shower on the wound if it is not draining. If you note any drainage or for comfort you can cover with dry gauze and tape. Change every 2-3 days as needed. Continue with physical therapy. Resume home diet. Report any fever over 101.5 Fahrenheit, uncontrolled pain, increased drainage, foul odor of drainage, new or increased calf pain or shortness of breath, or any other significant complaints. A 325mg dialy aspirin will be started after finishing anticoagulation if not allergic. Continue with JULIETA hose on the operative extremity until instructed otherwise. No driving until instructed otherwise. Follow up in approximately 10-14 days. Procedures Performed: see notes below List Procedures: Left total knee arthroplasty Discharge Disposition: [facility] Disposition: [facility] Condition: Good Discharge Activity: Activity as tolerated, Weight bearing Discharge Diet: Consistent carbs, Low salt Discharge Level of Care:: SNF [facility] Therapy: Physicial Therapy Additional Patient Instructions (free text): Follow-up in the office with Dr. Frances on 12/28/16@10:45am. Prescriptions (Any new or edited meds): Enoxaparin Sodium [Lovenox] 40 mg SC Q24H #7 disp.syrin HYDROcodone/ACETAMINOPHEN [[place] 5-325] 1 each PO Q2H PRN #120 tablet PRN Reason: Moderate Pain Morphine Sulfate [Ms Contin] 15 mg PO Q12H #20 tablet.sa Sennosides/Docusate Sodium [Senokot-S] 2 tab PO HS #30 tablet Complete Home Medications List: Complete Home Medication List: Albuterol Sulfate [Proventil Hfa] 2 puff IH Q4H PRN 10/28/16 Aspirin [Aspirin Enteric Coated] 81 mg PO DAILY 10/28/16 Blood-Glucose Meter [Blood Glucose Monitoring] 1 each MC DAILY 10/28/16 Calcium Carbonate 600 mg PO DAILY 10/28/16 Cholecalciferol (Vitamin D3) [Vitamin D3] 5,000 unit PO DAILY 10/28/16 Denosumab [Prolia] 60 mg SQ Q180D 10/28/16 Diclofenac Sodium [Voltaren] 1 applic TP QID 10/28/16 Irbesartan [Avapro] 300 mg PO DAILY 10/28/16 Mometasone/Formoterol [Dulera 100 Mcg/5 Mcg Inhaler] 1 puff IH BID 10/28/16 Multivit-Minerals/Folic/Ginkgo [One Daily Women 50 Plus Tab] 1 each PO DAILY Nitroglycerin [Nitrostat] 0.4 mg SL [id number] PRN 10/28/16 Pravastatin Sodium [Pravachol] 20 mg PO DAILY 10/28/16 amLODIPine BESYLATE [Norvasc] 5 mg PO DAILY 10/28/16 metFORMIN HCL [Metformin HCl ER] 1,000 mg PO BID 10/28/16 rOPINIRole HCL [Requip] 0.25 mg PO HS PRN 10/28/16 Lidocaine [Lidoderm 5%] 1 patch TP DAILY 11/26/16 Enoxaparin Sodium [Lovenox] 40 mg SC Q24H #7 disp.syrin 12/16/16 HYDROcodone/ACETAMINOPHEN [[place] 5-325] 1 each PO Q2H PRN #120 tablet 12/16/16 Morphine Sulfate [Ms Contin] 15 mg PO Q12H #20 tablet.sa 12/16/16 Sennosides/Docusate Sodium [Senokot-S] 2 tab PO HS #30 tablet 12/16/16
[2016-12-16] MEDS: FLUTICASONE/SALMETEROL 14 PUFF DISK.W.DEV IH SCH (09:01)
[2016-12-16] MEDS: LOSARTAN POTASSIUM 50 MG TABLET PO SCH (09:02)
[2016-12-16] MEDS: CALCIUM CARBONATE 500 MG TAB.CHEW PO SCH (09:03)
[2016-12-16] MEDS: CHOLECALCIFEROL 5,000 UNIT TABLET PO SCH (09:03)
[2016-12-16] MEDS: MULTIVITAMINS 1 CAP CAPSULE PO SCH (09:03)
[2016-12-16] MEDS: MORPHINE SULFATE 15 MG TABLET.SA PO SCH (09:06)
[2016-12-16] MEDS ORDERED: BISACODYL 5 MG TABLET.DR PO STA (09:08)
[2017-01-03] MEDS ORDERED: DENOSUMAB 60 MG SQ SCH (09:00)
== END 2016-12-16 09:59 | DRG 470 ==
LOC: MS 07:44
PROVIDERS: ADMIT Orthopaedic Surgery; ATTEND Orthopaedic Surgery
PROC: 0SRD0J9 Replacement of Left Knee Joint with Synthetic Substitute, Cemented, Open Approach (ICD-10-PCS; principal; 2016-12-13 11:30)
DX: M17.0 Bilateral primary osteoarthritis of knee (principal); E11.9 Type 2 diabetes mellitus without complications; I10 Essential (primary) hypertension; J44.9 Chronic obstructive pulmonary disease, unspecified; I25.10 Atherosclerotic heart disease of native coronary artery without angina pectoris; Z95.5 Presence of coronary angioplasty implant and graft; Z87.891 Personal history of nicotine dependence; Z79.82 Long term (current) use of aspirin
CPT/HCPCS: 27447; 36415; 73560; 80048; 85027; 97110; 97116; 97161; 97165; 97530; 97535; J2405

== ENCOUNTER 2017-03-30 06:56 | Day surgery (SDC) | payer MEDICARE, MEDICAID ==
[~2017-03-30 06:56] MED LIST changes: -MORPHINE SULFATE 15 MG TABLET.SA PO PRN; -ROPIVACAINE HCL/PF 100 MG, KETOROLAC TROMETHAMINE 30 MG, EPINEPHrine 0.2 MG in NORMAL S... IJ PRN; +ROPIVACAINE HCL/PF 40 MG in NORMAL SALINE 16 ML IJ PRN; -TRANEXAMIC ACID 1,000 MG in NORMAL SALINE 100 ML IV PRN; -ceFAZolin SODIUM 1 GM VIAL IV PRN
[2017-03-30] MEDS ORDERED: RINGER'S SOLUTION,LACTATED 1,000 ML IV ONE ×2 (07:43→07:45)
[2017-03-30] MEDS ORDERED: RINGER'S SOLUTION,LACTATED 1,000 ML IV PRN (08:50)
[2017-03-30] MEDS ORDERED: oxyCODONE HCL/ACETAMINOPHEN 1 TAB TABLET PO PRN (08:52)
[2017-03-30] MEDS ORDERED: HYDROmorphone HCL 2 MG/ML VIAL IV PRN (08:53)
[2017-03-30 09:36] VITALS: BP 152/66
== END 2017-03-30 06:57 | disposition home or self-care (01) ==
LOC: AMB 06:56
PROVIDERS: ATTEND Orthopaedic Surgery
PROC: 0SNDXZZ Release Left Knee Joint, External Approach (ICD-10-PCS; principal; 2017-03-30 08:00)
DX: M24.662 Ankylosis, left knee (principal); E11.9 Type 2 diabetes mellitus without complications; I10 Essential (primary) hypertension; J44.9 Chronic obstructive pulmonary disease, unspecified; I25.10 Atherosclerotic heart disease of native coronary artery without angina pectoris; M17.0 Bilateral primary osteoarthritis of knee; M81.0 Age-related osteoporosis without current pathological fracture; E66.9 Obesity, unspecified; Z68.38 Body mass index [BMI] 38.0-38.9, adult; Z87.891 Personal history of nicotine dependence; Z96.652 Presence of left artificial knee joint